=== PATIENT | male | born 1995 | race Caucasian/White ===

== ENCOUNTER 2018-01-23 01:30 | Emergency (ER) | payer OTHER ==
[~2018-01-23] VITALS: Ht 193 cm; Wt 86.2 kg
[2018-01-23 01:30] VITALS: BP 121/73
[2018-01-23] MEDS ORDERED: HYDR-971 PO (02:23)
[2018-01-23] MEDS ORDERED: IBUP800T19 PO (02:23)
--- NOTE | 2018-01-23 02:25 | PHYS DOC ---
Adult General Chief Complaint Chief Complaint hand pain HPI HPI 22 years old male presented to the emergency department with an pain swelling tenderness after he punched the floor Review of Systems Review of Systems Constitutional: Denies fever or chills [] Eyes: Denies change in visual acuity, redness, or eye pain [] HENT: Denies nasal congestion or sore throat [] Respiratory: Denies cough or shortness of breath [] Cardiovascular: No additional information not addressed in HPI [] GI: Denies abdominal pain, nausea, vomiting, bloody stools or diarrhea [] : Denies dysuria or hematuria [] Musculoskeletal: Denies back pain Integument: Denies rash or skin lesions [] Neurologic: Denies headache, focal weakness or sensory changes [] Endocrine: Denies polyuria or polydipsia [] All other systems were reviewed and found to be within normal limits, except as documented in this note. Current Medications Current Medications Current Medications Medications (Trade) Dose Ordered Sig/Tish Start Time Stop Time Status Last Admin Dose Admin Acetaminophen/ Hydrocodone Bitart (Lortab 10/325) 1 tab 1X ONCE 01/23/18 02:30 01/23/18 02:31 UNV Ibuprofen (Motrin) 600 mg 1X ONCE 01/23/18 02:30 01/23/18 02:31 UNV Allergies Allergies Allergies Coded Allergies Type Severity Reaction Last Updated Verified prochlorperazine Allergy Unknown 01/23/18 Yes Physical Exam Physical Exam Constitutional: Well developed, well nourished, no acute distress, non-toxic appearance. [] HENT: Normocephalic, atraumatic, bilateral external ears normal, oropharynx moist, no oral exudates, nose normal. [] Eyes: PERRLA, EOMI, conjunctiva normal, no discharge. [] Neck: Normal range of motion, no tenderness, supple, no stridor. [] Cardiovascular:Heart rate regular rhythm, no murmur [] Lungs & Thorax: Bilateral breath sounds clear to auscultation [] Abdomen: Bowel sounds normal, soft, no tenderness, no masses, no pulsatile masses. [] Skin: Warm, dry, no erythema, no rash. [] Back: No tenderness, no CVA tenderness. [] Extremities: Right hand swollen tender ecchymosis no deformity limited restriction of movement Neurologic: Alert and oriented X 3, normal motor function, normal sensory function, no focal deficits noted. [] Psychologic: Affect normal, judgement normal, mood normal. [] Current Patient Data Vital Signs Vital Signs Date Time Temp Pulse Resp B/P (MAP) Pulse Ox O2 Delivery O2 Flow Rate FiO2 01/23/18 01:30 98.2 60 18 97 Room Air EKG EKG [] Radiology/Procedures Radiology/Procedures [] Course & Med Decision Making Course & Med Decision Making Pertinent Labs and Imaging studies reviewed. (See chart for details) [] Final Impression Final Impression [] Problems: (1) Boxer's fracture Qualifiers: Qualified Codes: S62.339A - Displaced fracture of neck of unspecified metacarpal bone, initial encounter for closed fracture Dragon Disclaimer Dragon Disclaimer This electronic medical record was generated, in whole or in part, using a voice recognition dictation system. WALT SAHU MD Jan 23, 2018 02:25
[2018-01-23] MEDS ORDERED: IBUPROFEN 600 MG TABLET. PO ONE (03:00)
[2018-01-23] MEDS ORDERED: HYDROcodone/APAP 10/325 1 TAB TABLET PO ONE (03:00)
--- NOTE | 2018-01-23 03:16 | RAD ---
HAND RIGHT 3V Clinical Indication: Right hand punching injury, pain with swelling Comparison: None. Findings: There is acute traumatic transverse fracture of the mid diaphysis of the third metacarpal. Distal fracture fragment is posteriorly and slightly medially displaced. There is mild dorsal vertex angulation. Bony articulations are maintained. The mineralization is normal. There is minimal dorsal soft tissue swelling. IMPRESSION: Acute traumatic fracture of the midshaft of the third metacarpal. Electronically signed by: Brayden Olivas MD (01/23/2018 3:13 AM) [facility]
== END 2018-01-23 02:50 | disposition home or self-care (01) ==
LOC: ER 01:30
DX: S62.322A Displaced fracture of shaft of third metacarpal bone, right hand, initial encounter for closed fracture (principal); Z88.8 Allergy status to other drugs, medicaments and biological substances; W22.01XA Walked into wall, initial encounter; Y93.89 Activity, other specified; Y92.89 Other specified places as the place of occurrence of the external cause; Y99.8 Other external cause status
CPT/HCPCS: 29125; 73130; 99284